=== PATIENT | female | born 2000 | race Caucasian/White ===

== ENCOUNTER 2020-09-18 20:52 | Outpatient (CLI) | payer OTHER | END 2020-09-18 22:06 | disposition home or self-care (01) | LOC: GENOP 20:52 | DX: O99.891 Other specified diseases and conditions complicating pregnancy (principal); N89.8 Other specified noninflammatory disorders of vagina; M54.9 Dorsalgia, unspecified; R10.2 Pelvic and perineal pain; Z3A.37 37 weeks gestation of pregnancy | CPT/HCPCS: 81001; 83518; G0463 ==

== ENCOUNTER 2020-09-28 07:19 | Inpatient (IN) | payer OTHER ==
[~2020-09-28] VITALS: Ht 157.5 cm; Wt 58.1 kg
[2020-09-28 08:16] LABS: RED BLOOD COUNT 3.99 M/UL (4.00-5.10); WHITE BLOOD COUNT 13.8 K/UL (4.5-11.0)
[2020-09-28] MEDS ORDERED: FERROUS SULFAT325 M2 PO (08:27)
[2020-09-28] MEDS ORDERED: DOCUSATE SODIU100 MG PO (11:58)
[2020-09-28] MEDS ORDERED: HYDROCODON-ACE1 EAC4 PO (11:58)
[2020-09-28] MEDS ORDERED: IBUPROFEN600 MG PO (11:58)
[2020-09-29 06:01] LABS: HEMOGLOBIN 10.8 gm/dl (12.3-15.3)
== END 2020-09-29 14:06 | disposition home or self-care (01) | DRG 807 ==
LOC: GENOP 07:19 → OB 07:40
PROVIDERS: Obstetrics & Gynecology; ADMIT Obstetrics & Gynecology
PROC: 4A1HX4Z Monitoring of Products of Conception, Cardiac Electrical Activity, External Approach (ICD-10-PCS; principal; 2020-09-28)
PROC: 10E0XZZ Delivery of Products of Conception, External Approach (ICD-10-PCS; principal; 2020-09-28)
PROC: 10907ZC Drainage of Amniotic Fluid, Therapeutic from Products of Conception, Via Natural or Artificial Opening (ICD-10-PCS; principal; 2020-09-28)
PROC: 0KQM0ZZ Repair Perineum Muscle, Open Approach (ICD-10-PCS; principal; 2020-09-28)
DX: O70.1 Second degree perineal laceration during delivery (principal); Z37.0 Single live birth; Z3A.39 39 weeks gestation of pregnancy; Z20.822 Contact with and (suspected) exposure to COVID-19
CPT/HCPCS: 36415; 51702; 81001; 82800; 85014; 85018; 85025; 90471; 90715; J2590; J2795; J3010; J7120; U0002

== ENCOUNTER 2022-01-07 18:11 | Emergency (ER) | payer OTHER ==
[~2022-01-07 18:11] MED LIST: DOCUSATE SODIU100 MG PO; FERROUS SULFAT325 M2 PO; HYDROCODON-ACE1 EAC4 PO; IBUPROFEN600 MG PO
[2022-01-07 19:31] LABS: HEMOGLOBIN 13.3 gm/dl (12.3-15.3); RED BLOOD COUNT 4.54 M/UL (4.00-5.10); WHITE BLOOD COUNT 6.1 K/UL (4.5-11.0)
[2022-01-07 19:51] LABS: BUN/CREATININE RATIO 13 (0-10)
== END 2022-01-07 22:45 | disposition home or self-care (01) ==
LOC: ER1 18:11
PROVIDERS: Physician Assistant Medical
DX: O20.0 Threatened abortion (principal); O99.331 Smoking (tobacco) complicating pregnancy, first trimester; F17.210 Nicotine dependence, cigarettes, uncomplicated; Z3A.08 8 weeks gestation of pregnancy
CPT/HCPCS: 76817; 80053; 81001; 84702; 85025; 86900; 86901; 99284